=== PATIENT | male | born 1945 | race Caucasian/White ===

== ENCOUNTER 2021-04-20 11:21 | Inpatient (IN) ==
[2021-04-20] MEDS ORDERED: Naloxone 0.4 MG/ML INJ IVP PRN (13:32)
[2021-04-20] MEDS ORDERED: Ondansetron 4 MG/2 ML VIAL IVP PRN (13:32)
[2021-04-20 15:36] LABS: Basophils # 0.1 K/mcL (0.0-0.2); Basophils % 0.6 %; Eosinophils # 0.1 K/mcL (0.0-0.6); Hematocrit 39.7 % (37.5-50.1); Immature Granulocytes % 0.4 % (0-4); Lymphocytes # 1.3 K/mcL (0.6-4.6); Lymphocytes % 14.3 %; Mean Corpuscular HGB Conc 32.7 g/dL (31.6-35.5); Mean Corpuscular Hemoglobin 31.1 pg (28.0-33.3); Mean Platelet Volume 9.6 fL (9.4-12.4); Monocytes # 0.8 K/mcL (0.0-1.3); Neutrophils # 6.8 K/mcL (1.6-8.9); Platelet Count 205 K/mcL (140-400); Red Blood Count 4.18 M/mcL (4.19-5.50); Red Cell Distribution Width 13.2 % (11.5-14.5); Segmented Neutrophils % 74.7 %; White Blood Count 9.1 K/mcL (4.3-11.1)
[2021-04-20 15:45] LABS: INR 1.3
[2021-04-20] MEDS ORDERED: Bumetanide 1 MG TABLET PO ONE (15:54)
[2021-04-20 16:01] LABS: Alanine Aminotransferase 23 Units/L (7-52); Albumin 4.4 g/dL (3.5-5.7); Albumin/Globulin Ratio 1.4 (1.1-2.2); Alkaline Phosphatase 90 Units/L (34-104); Aspartate Amino Transferase 21 Units/L (13-39); BUN/Creatinine Ratio 17 (6-26); Bilirubin,Total 0.6 mg/dL (0.3-1.0); Blood Urea Nitrogen 20 mg/dL (8-23); Calcium 9.6 mg/dL (8.6-10.3); Carbon Dioxide 30 mEq/L (23-29); Chloride 98 mEq/L (98-107); Globulin 3.2 g/dL (2.4-3.5); Glucose 165 mg/dL (70-105); Osmolality,Calculated 286 (280-300); Potassium 4.7 mEq/L (3.5-5.1); Sodium 135 mEq/L (136-145); Total Protein 7.6 g/dL (6.4-8.9); eGFR For African Americans > 60 (> 60); eGFR For Non-African Americans > 60 (> 60)
[2021-04-20] MEDS: Ipratropium/Albuterol Neb 3 ML IH SCH ×2 (16:32→20:07)
[2021-04-20] MEDS ORDERED: Dextrose Gel 15 GM/37.5 ML TUBE PO PRN ×2 (17:17)
[2021-04-20] MEDS ORDERED: D5% in Water 1,000 ML IVC PRN (17:17)
[2021-04-20] MEDS ORDERED: *HR* Dextrose 50 % in Water (Syg) 50 ML SYRINGE IVP PRN (17:17)
[2021-04-20] MEDS: Insulin LISPRO 300 UNITS/3 ML VIAL SUBQ SCH ×2 (17:40→20:38)
[2021-04-20] MEDS: Budesonide/Formoterol 80/4.5 1 PUFF INH IH SCH (20:07)
[2021-04-21] MEDS: Melatonin 3 MG TABLET PO PRN ×2 (02:36→21:32)
[2021-04-21] MEDS: *HR* HYDROcodone/Acet 5/325 mg TABLET PO PRN ×3 (02:36→21:32)
[2021-04-21] MEDS: Ipratropium/Albuterol Neb 3 ML IH SCH ×4 (03:50→19:51)
[2021-04-21 06:36] LABS: Basophils # 0.1 K/mcL (0.0-0.2); Basophils % 0.8 %; Eosinophils # 0.1 K/mcL (0.0-0.6); Eosinophils % 1.1 %; Hemoglobin 12.9 g/dL (12.9-16.9); Immature Granulocytes % 0.5 % (0-4); Lymphocytes % 20.4 %; Mean Corpuscular HGB Conc 32.3 g/dL (31.6-35.5); Mean Corpuscular Hemoglobin 30.9 pg (28.0-33.3); Mean Corpuscular Volume 95.7 fL (83.0-100.0); Mean Platelet Volume 10.2 fL (9.4-12.4); Monocytes % 10.6 %; Neutrophils # 6.5 K/mcL (1.6-8.9); Platelet Count 215 K/mcL (140-400); Red Blood Count 4.18 M/mcL (4.19-5.50); Red Cell Distribution Width 13.3 % (11.5-14.5); Segmented Neutrophils % 66.6 %; White Blood Count 9.8 K/mcL (4.3-11.1)
[2021-04-21 06:59] LABS: Alanine Aminotransferase 21 Units/L (7-52); Albumin 4.3 g/dL (3.5-5.7); Albumin/Globulin Ratio 1.4 (1.1-2.2); Alkaline Phosphatase 87 Units/L (34-104); Aspartate Amino Transferase 18 Units/L (13-39); BUN/Creatinine Ratio 17 (6-26); Bilirubin,Total 0.5 mg/dL (0.3-1.0); Blood Urea Nitrogen 19 mg/dL (8-23); Calcium 9.5 mg/dL (8.6-10.3); Carbon Dioxide 31 mEq/L (23-29); Chloride 97 mEq/L (98-107); Globulin 3.1 g/dL (2.4-3.5); Glucose 201 mg/dL (70-105); Osmolality,Calculated 292 (280-300); Potassium 3.8 mEq/L (3.5-5.1); Sodium 137 mEq/L (136-145); Total Protein 7.4 g/dL (6.4-8.9); eGFR For African Americans > 60 (> 60); eGFR For Non-African Americans > 60 (> 60)
[2021-04-21] MEDS: Insulin LISPRO 300 UNITS/3 ML VIAL SUBQ SCH ×4 (07:56→21:32)
[2021-04-21] MEDS ORDERED: GADOBUTROL 30 MMOL/30 ML VIAL IVP ONE (08:07)
[2021-04-21] MEDS ORDERED: FLUTICASONE PROPION IH SCH (09:00)
[2021-04-21] MEDS ORDERED: SALMETEROL IH SCH (09:00)
[2021-04-21] MEDS ORDERED: [UNRECOGNIZED DRUG - OTHER] IH SCH (09:00)
[2021-04-21] MEDS: Budesonide/Formoterol 80/4.5 1 PUFF INH IH SCH ×2 (10:00→19:51)
[2021-04-22 03:14] LABS: Basophils # 0.1 K/mcL (0.0-0.2); Basophils % 0.7 %; Eosinophils # 0.2 K/mcL (0.0-0.6); Eosinophils % 1.9 %; Hematocrit 37.1 % (37.5-50.1); Hemoglobin 12.3 g/dL (12.9-16.9); Immature Granulocytes % 0.4 % (0-4); Lymphocytes # 1.3 K/mcL (0.6-4.6); Lymphocytes % 15.4 %; Mean Corpuscular HGB Conc 33.2 g/dL (31.6-35.5); Mean Corpuscular Hemoglobin 32.2 pg (28.0-33.3); Mean Corpuscular Volume 97.1 fL (83.0-100.0); Mean Platelet Volume 10.2 fL (9.4-12.4); Monocytes % 12.1 %; Neutrophils # 5.7 K/mcL (1.6-8.9); Platelet Count 170 K/mcL (140-400); Red Blood Count 3.82 M/mcL (4.19-5.50); Red Cell Distribution Width 13.2 % (11.5-14.5); Segmented Neutrophils % 69.5 %; White Blood Count 8.3 K/mcL (4.3-11.1)
[2021-04-22 03:26] LABS: Estimated Average Glucose 169 mg/dl; Hemoglobin A1C 7.5 %
[2021-04-22 03:33] LABS: Alanine Aminotransferase 19 Units/L (7-52); Albumin 3.9 g/dL (3.5-5.7); Albumin/Globulin Ratio 1.4 (1.1-2.2); Alkaline Phosphatase 81 Units/L (34-104); Aspartate Amino Transferase 16 Units/L (13-39); BUN/Creatinine Ratio 16 (6-26); Bilirubin,Total 0.6 mg/dL (0.3-1.0); Blood Urea Nitrogen 17 mg/dL (8-23); Calcium 9.1 mg/dL (8.6-10.3); Carbon Dioxide 32 mEq/L (23-29); Chloride 97 mEq/L (98-107); Globulin 2.8 g/dL (2.4-3.5); Glucose 212 mg/dL (70-105); Osmolality,Calculated 288 (280-300); Potassium 4.4 mEq/L (3.5-5.1); Sodium 135 mEq/L (136-145); Total Protein 6.7 g/dL (6.4-8.9); eGFR For African Americans > 60 (> 60); eGFR For Non-African Americans > 60 (> 60)
[2021-04-22] MEDS: Ipratropium/Albuterol Neb 3 ML IH SCH ×2 (03:48→08:05)
[2021-04-22] MEDS: *HR* HYDROcodone/Acet 5/325 mg TABLET PO PRN (03:57)
[2021-04-22] MEDS: Budesonide/Formoterol 80/4.5 1 PUFF INH IH SCH ×2 (08:05→20:22)
[2021-04-22] MEDS: Insulin LISPRO 300 UNITS/3 ML VIAL SUBQ SCH ×3 (08:54→21:04)
[2021-04-22] MEDS ORDERED: *HR* FentaNYL (PF) 100 MCG/2 ML VIAL ONE (11:22)
[2021-04-22] MEDS ORDERED: Lidocaine -MPF 2% 5 ML VIAL ONE (11:23)
[2021-04-22] MEDS ORDERED: *HR* Propofol 200 MG/20 ML VIAL IVP ONE (11:23)
[2021-04-22] MEDS ORDERED: *HR* Succinylcholine 200 MG/10 ML VIAL IVP ONE (11:24)
[2021-04-22] MEDS ORDERED: Lidocaine HCL 4 ML Topical Solution (Laryng-O-Jet Kit Sterile Pak) TP ONE (11:25)
[2021-04-22] MEDS ORDERED: Ondansetron 4 MG/2 ML VIAL ONE (11:45)
[2021-04-22] MEDS ORDERED: Insulin LISPRO 300 UNITS/3 ML VIAL SUBQ SCH (12:00)
[2021-04-22] MEDS ORDERED: Ipratropium/Albuterol Neb 3 ML IH PRN (14:08)
[2021-04-23] MEDS: *HR* HYDROcodone/Acet 5/325 mg TABLET PO PRN ×3 (00:27→17:10)
[2021-04-23] MEDS: Melatonin 3 MG TABLET PO PRN (00:27)
[2021-04-23 01:09] LABS: Basophils % 0.3 %; Eosinophils % 0.1 %; Hematocrit 39.2 % (37.5-50.1); Immature Granulocytes % 0.5 % (0-4); Lymphocytes # 0.7 K/mcL (0.6-4.6); Lymphocytes % 7.4 %; Mean Corpuscular HGB Conc 33.2 g/dL (31.6-35.5); Mean Corpuscular Hemoglobin 31.2 pg (28.0-33.3); Mean Platelet Volume 9.9 fL (9.4-12.4); Monocytes # 0.6 K/mcL (0.0-1.3); Monocytes % 6.3 %; Neutrophils # 8.5 K/mcL (1.6-8.9); Platelet Count 209 K/mcL (140-400); Red Blood Count 4.17 M/mcL (4.19-5.50); Red Cell Distribution Width 13.4 % (11.5-14.5); Segmented Neutrophils % 85.4 %
[2021-04-23 01:27] LABS: Alanine Aminotransferase 17 Units/L (7-52); Albumin 4.1 g/dL (3.5-5.7); Albumin/Globulin Ratio 1.3 (1.1-2.2); Alkaline Phosphatase 88 Units/L (34-104); Aspartate Amino Transferase 16 Units/L (13-39); BUN/Creatinine Ratio 14 (6-26); Bilirubin,Total 0.6 mg/dL (0.3-1.0); Blood Urea Nitrogen 16 mg/dL (8-23); Calcium 9.3 mg/dL (8.6-10.3); Carbon Dioxide 24 mEq/L (23-29); Chloride 99 mEq/L (98-107); Globulin 3.2 g/dL (2.4-3.5); Glucose 222 mg/dL (70-105); Osmolality,Calculated 284 (280-300); Potassium 4.6 mEq/L (3.5-5.1); Sodium 133 mEq/L (136-145); Total Protein 7.3 g/dL (6.4-8.9); eGFR For African Americans > 60 (> 60); eGFR For Non-African Americans > 60 (> 60)
[2021-04-23] MEDS: Budesonide/Formoterol 80/4.5 1 PUFF INH IH SCH (08:10)
[2021-04-23] MEDS: Insulin LISPRO 300 UNITS/3 ML VIAL SUBQ SCH ×2 (09:02→12:02)
[2021-04-23 10:57] VITALS: BP 132/65; PULSE 69; TEMP 97.8; O2SAT 97
== END 2021-04-23 17:40 | disposition home or self-care (01) | DRG 439 ==
LOC: 3ANU → SUATTDRO 12:52 → 3ANU 13:01 → SUATTDRO 13:44
PROVIDERS: ADMIT Hospitalist; ATTEND Internal Medicine
PROC: ENDOEUS (2021-04-22 13:50)

== ENCOUNTER 2021-06-16 16:59 | Observation (INO) ==
[2021-06-16] MEDS ORDERED: 0.9 % Sodium Chloride 1,000 ML IVC ONE (17:22)
[2021-06-16 18:07] LABS: Basophils % 0.4 %; Red Cell Distribution Width 12.9 % (11.5-14.5)
[2021-06-16 18:09] LABS: Hematocrit 41.4 % (37.5-50.1); Hemoglobin 13.5 g/dL (12.9-16.9); Immature Granulocytes % 0.2 % (0-4); Immature Platelets 2.6 % (1.1-6.1); Lymphocytes # 0.2 K/mcL (0.6-4.6); Lymphocytes % 5.4 %; Mean Corpuscular HGB Conc 32.6 g/dL (31.6-35.5); Mean Corpuscular Hemoglobin 30.6 pg (28.0-33.3); Mean Corpuscular Volume 93.9 fL (83.0-100.0); Mean Platelet Volume 9.5 fL (9.4-12.4); Monocytes # 0.3 K/mcL (0.0-1.3); Monocytes % 7.6 %; Neutrophils # 3.9 K/mcL (1.6-8.9); Nucleated Red Blood Cells 0.4 /100 WBC (0); Red Blood Count 4.41 M/mcL (4.19-5.50); Segmented Neutrophils % 86.4 %; White Blood Count 4.5 K/mcL (4.3-11.1)
[2021-06-16 18:14] LABS: INR 1.2; Prothrombin Time 13.3 Seconds (9.4-12.1)
[2021-06-16 18:17] LABS: Activated Partial Thrombo Time 32.7 Seconds (26.0-36.0)
[2021-06-16 18:28] LABS: Alanine Aminotransferase 52 Units/L (7-52); Albumin 4.2 g/dL (3.5-5.7); Albumin/Globulin Ratio 1.3 (1.1-2.2); Alkaline Phosphatase 103 Units/L (34-104); Aspartate Amino Transferase 45 Units/L (13-39); BUN/Creatinine Ratio 24 (6-26); Bilirubin,Direct 0.1 mg/dL (0.0-0.2); Bilirubin,Indirect 0.8 mg/dL (0.0-1.0); Bilirubin,Total 0.9 mg/dL (0.3-1.0); Blood Urea Nitrogen 23 mg/dL (8-23); Calcium 9.7 mg/dL (8.6-10.3); Carbon Dioxide 28 mEq/L (23-29); Chloride 95 mEq/L (98-107); Ethanol < 10 mg/dL (Less than 10); Globulin 3.2 g/dL (2.4-3.5); Glucose 207 mg/dL (70-105); Osmolality,Calculated 282 (280-300); Potassium 4.4 mEq/L (3.5-5.1); Sodium 131 mEq/L (136-145); Total Protein 7.4 g/dL (6.4-8.9); Troponin I < 0.03 ng/mL (< 0.04); eGFR For African Americans > 60 (> 60); eGFR For Non-African Americans > 60 (> 60)
[2021-06-16] MEDS ORDERED: cefTRIAXone 1,000 MG in 0.9 % Sodium Chloride 10 ML IVP ONE (18:30)
[2021-06-16] MEDS ORDERED: Azithromycin 500 MG in 0.9 % Sodium Chloride 250 ML IVPB ONE (18:30)
[2021-06-16 18:38] LABS: Bilirubin,Urine Negative (Negative); Blood,Urine Negative (Negative); Clarity,Urine Clear (Clear); Color,Urine Light-Yellow (Yellow); Glucose,Urine (UA) >=1000 mg/dL (Normal); Ketones,Urine Negative (Negative); Leukocyte Esterase,Urine Moderate (Negative); Nitrite,Urine Negative (Negative); Protein,Urine 100 mg/dL (Neg-Trace); Specific Gravity,Urine 1.027 (1.010-1.025); Squamous Epithelial Cell,Urine Few per hpf (None-Few); Urobilinogen,Urine Normal (Normal); WBC,Urine 50-100 per hpf (0-3)
[2021-06-16 18:44] LABS: Platelet Count 94 K/mcL (140-400)
[2021-06-16 18:47] LABS: Amphetamine Screen,Urine Negative ng/mL (Cutoff=1000); Barbiturate Screen,Urine Negative ng/mL (Cutoff=200); Benzodiazepines Screen,Urine Negative ng/mL (Cutoff=200); Cannabinoid Screen,Urine Negative ng/mL (Cutoff = 50); Cocaine Screen,Urine Negative ng/mL (Cutoff= 300); Opiate Screen,Urine Negative ng/mL (Cutoff=300); Phencyclidine Screen,Urine Negative ng/mL (Cutoff=25)
[2021-06-16 18:50] LABS: Platelet Estimate Decreased (Normal); Stomatocytes 1+ (Not Present)
[2021-06-16 18:51] LABS: Basophilic Stippling 1+ (Not Present)
[2021-06-16] MEDS ORDERED: *HR* Dextrose 50 % in Water (Syg) 50 ML SYRINGE IVP PRN (19:52)
[2021-06-16] MEDS ORDERED: D5% in Water 1,000 ML IVC PRN (19:52)
[2021-06-16] MEDS ORDERED: Naloxone 0.4 MG/ML INJ IVP PRN (19:52)
[2021-06-16] MEDS ORDERED: Dextrose 4 GM Chewable Tablets PO PRN ×2 (19:52)
[2021-06-16] MEDS ORDERED: Insulin DETEMIR 100 UNIT/ML X5UNITS SUBQ SCH (21:00)
[2021-06-16 21:19] LABS: Influenza A PCR Negative (Negative); Influenza B PCR Negative (Negative); Resp. Syncytial Virus PCR Negative (Negative)
[2021-06-16 21:23] LABS: SARS-CoV-2 by PCR (In House) Negative (Negative)
[2021-06-16] MEDS ORDERED: Perflutren Lipid Microsphere 1.3 ML in 0.9 % Sodium Chloride 8.7 ML IVP PRN (22:01)
[2021-06-16] MEDS ORDERED: Isovue-370 500 ML BOTTLE IVP ONE (22:01)
[2021-06-16 22:05] LABS: Estimated Average Glucose 177 mg/dl; Hemoglobin A1C 7.8 %
[2021-06-17 05:38] LABS: Hemoglobin 12.4 g/dL (12.9-16.9); Red Cell Distribution Width 12.9 % (11.5-14.5)
[2021-06-17 05:40] LABS: Hematocrit 37.8 % (37.5-50.1); Immature Platelets 2.9 % (1.1-6.1); Mean Corpuscular HGB Conc 32.8 g/dL (31.6-35.5); Mean Corpuscular Volume 94.5 fL (83.0-100.0); Mean Platelet Volume 10.4 fL (9.4-12.4); White Blood Count 6.8 K/mcL (4.3-11.1)
[2021-06-17 05:42] LABS: INR 1.4; Prothrombin Time 15.8 Seconds (9.4-12.1)
[2021-06-17] MEDS ORDERED: *HR* OxyCODONE Immed Rel 5 MG TABLET PO PRN (05:55)
[2021-06-17 06:07] LABS: Alanine Aminotransferase 50 Units/L (7-52); Albumin 3.7 g/dL (3.5-5.7); Albumin/Globulin Ratio 1.4 (1.1-2.2); Alkaline Phosphatase 92 Units/L (34-104); Aspartate Amino Transferase 41 Units/L (13-39); BUN/Creatinine Ratio 21 (6-26); Bilirubin,Total 0.9 mg/dL (0.3-1.0); Blood Urea Nitrogen 19 mg/dL (8-23); Calcium 9.2 mg/dL (8.6-10.3); Carbon Dioxide 29 mEq/L (23-29); Chloride 99 mEq/L (98-107); Chol/HDL Ratio 2.3 (0-4.9); Cholesterol 88 mg/dL (< 200); Globulin 2.7 g/dL (2.4-3.5); Glucose 107 mg/dL (70-105); HDL Cholesterol 39 mg/dL (40-59); LDL Cholesterol,Calculated 38 mg/dL (< 100); Osmolality,Calculated 283 (280-300); Sodium 135 mEq/L (136-145); Total Protein 6.4 g/dL (6.4-8.9); Triglycerides 55 mg/dL (< 150); eGFR For African Americans > 60 (> 60); eGFR For Non-African Americans > 60 (> 60)
[2021-06-17] MEDS: Insulin LISPRO 300 UNITS/3 ML VIAL SUBQ SCH ×2 (08:00→12:06)
[2021-06-17] MEDS ORDERED: ALPRAZolam 0.5 MG TABLET PO PRN (09:00)
[2021-06-17] MEDS ORDERED: Azithromycin 250 MG TABLET PO SCH (09:00)
[2021-06-17] MEDS ORDERED: cefTRIAXone 2,000 MG in 0.9 % Sodium Chloride 20 ML IVP SCH (09:00)
[2021-06-17] MEDS ORDERED: Aspirin Enteric Coated 81 MG Tablet PO SCH (09:00)
[2021-06-17 10:44] VITALS: BP 115/54; PULSE 82; TEMP 97.9; O2SAT 97
[2021-06-17] MEDS ORDERED: Ipratropium/Albuterol Neb 3 ML IH PRN (13:35)
[2021-06-17] MEDS ORDERED: Apixaban 5 MG TABLET PO SCH (21:00)
[2021-06-17] MEDS ORDERED: Budesonide/Formoterol 160/4.5 1 PUFF INH IH SCH (22:00)
[2021-06-18] MEDS ORDERED: Bumetanide 1 MG TABLET PO SCH (09:00)
== END 2021-06-17 19:05 | disposition home health service (06) ==
LOC: EMEROOARM 16:59 → 3ANU 16:59
PROVIDERS: ADMIT Internal Medicine; ATTEND Internal Medicine

== ENCOUNTER 2021-11-07 11:07 | Observation (INO) ==
[2021-11-07] MEDS ORDERED: Albuterol 2.5 MG/3 ML NEBULIZER IH ONE (12:11)
[2021-11-07] MEDS ORDERED: Ipratropium/Albuterol Neb 3 ML IH ONE (12:11)
[2021-11-07] MEDS ORDERED: Permethrin Cream Rinse 60 ML LIQUID TP ONE (12:15)
[2021-11-07] MEDS ORDERED: Iopamidol - 370 500 ML MLS IVP ONE (12:33)
[2021-11-07 12:34] LABS: Basophils # 0.1 K/mcL (0.0-0.2); Basophils % 0.3 %; Eosinophils % 0.1 %; Hematocrit 37.1 % (37.5-50.1); Hemoglobin 11.3 g/dL (12.9-16.9); Immature Granulocytes % 0.4 % (0-4); Lymphocytes # 0.6 K/mcL (0.6-4.6); Lymphocytes % 3.9 %; Mean Corpuscular HGB Conc 30.5 g/dL (31.6-35.5); Mean Corpuscular Hemoglobin 26.7 pg (28.0-33.3); Mean Corpuscular Volume 87.5 fL (83.0-100.0); Mean Platelet Volume 9.8 fL (9.4-12.4); Monocytes # 1.8 K/mcL (0.0-1.3); Monocytes % 11.3 %; Neutrophils # 13.3 K/mcL (1.6-8.9); Platelet Count 274 K/mcL (140-400); Red Blood Count 4.24 M/mcL (4.19-5.50); Red Cell Distribution Width 15.7 % (11.5-14.5); White Blood Count 15.8 K/mcL (4.3-11.1)
[2021-11-07 12:57] LABS: Troponin I 0.06 ng/mL (< 0.04)
[2021-11-07 14:10] LABS: Influenza A PCR Negative (Negative); Influenza B PCR Negative (Negative); Resp. Syncytial Virus PCR Negative (Negative)
[2021-11-07 14:14] LABS: SARS-CoV-2 by PCR (In House) Positive (Negative)
[2021-11-07] MEDS ORDERED: Ondansetron 4 MG/2 ML VIAL IVP PRN (16:34)
[2021-11-07] MEDS ORDERED: Melatonin 3 MG TABLET PO PRN (16:34)
[2021-11-07] MEDS ORDERED: Naloxone 0.4 MG/ML INJ IVP PRN ×2 (16:34→16:43)
[2021-11-07] MEDS ORDERED: D5% in Water 1,000 ML IVC PRN (16:40)
[2021-11-07] MEDS ORDERED: *HR* Dextrose 50 % in Water (Syg) 50 ML SYRINGE IVP PRN (16:40)
[2021-11-07] MEDS ORDERED: Dextrose Gel 15 GM/37.5 ML TUBE PO PRN ×2 (16:40)
[2021-11-07] MEDS ORDERED: *HR* Metoprolol 5 MG/5 ML VIAL IVP PRN (17:32)
[2021-11-07] MEDS: Ipratropium 1 PUFF INHALER IH SCH ×3 (18:27→22:21)
[2021-11-07 18:53] LABS: Estimated Average Glucose 137 mg/dl; Hemoglobin A1C 6.4 %
[2021-11-07] MEDS ORDERED: Apixaban 5 MG TABLET PO SCH (21:00)
[2021-11-07 22:16] LABS: Troponin I 0.2 ng/mL (< 0.04)
[2021-11-07] MEDS: Levalbuterol 1 PUFF INHALER IH SCH (22:21)
[2021-11-08] MEDS: Ipratropium 1 PUFF INHALER IH SCH ×5 (04:51→20:51)
[2021-11-08] MEDS: Levalbuterol 1 PUFF INHALER IH SCH ×4 (04:51→20:51)
[2021-11-08 06:00] LABS: Basophils % 0.1 %; Hematocrit 40.1 % (37.5-50.1); Hemoglobin 12.1 g/dL (12.9-16.9); Immature Granulocytes % 0.5 % (0-4); Lymphocytes # 0.4 K/mcL (0.6-4.6); Mean Corpuscular HGB Conc 30.2 g/dL (31.6-35.5); Mean Corpuscular Hemoglobin 26.5 pg (28.0-33.3); Mean Corpuscular Volume 87.7 fL (83.0-100.0); Mean Platelet Volume 9.9 fL (9.4-12.4); Monocytes # 0.8 K/mcL (0.0-1.3); Monocytes % 5.7 %; Neutrophils # 12.5 K/mcL (1.6-8.9); Platelet Count 284 K/mcL (140-400); Red Blood Count 4.57 M/mcL (4.19-5.50); Red Cell Distribution Width 15.4 % (11.5-14.5); Segmented Neutrophils % 90.7 %; White Blood Count 13.8 K/mcL (4.3-11.1)
[2021-11-08 06:21] LABS: Calcium 9.5 mg/dL (8.6-10.3); Magnesium 2.6 mg/dL (1.6-2.6); Phosphorous 4.1 mg/dL (2.7-4.5); Potassium 4.3 mEq/L (3.5-5.1)
[2021-11-08] MEDS: Dexamethasone Sodium Phos/PF 10 MG/ML VIAL IVP SCH (09:25)
[2021-11-08] MEDS: cefTRIAXone 1,000 MG in 0.9 % Sodium Chloride 10 ML IVP SCH (09:26)
[2021-11-08] MEDS: Azithromycin 500 MG in 0.9 % Sodium Chloride 250 ML IVPB SCH (09:26)
[2021-11-08] MEDS: Bumetanide 1 MG TABLET PO SCH (09:26)
[2021-11-08] MEDS: Apixaban 5 MG TABLET PO SCH ×2 (09:27→21:25)
[2021-11-08] MEDS: Insulin LISPRO 300 UNITS/3 ML VIAL SUBQ SCH ×3 (09:27→17:06)
[2021-11-09] MEDS: Ipratropium 1 PUFF INHALER IH SCH ×4 (04:13→20:39)
[2021-11-09] MEDS: Levalbuterol 1 PUFF INHALER IH SCH ×4 (04:13→20:38)
[2021-11-09 06:32] LABS: Bacteria,Urine Few per hpf (None-Few); Bilirubin,Urine Negative (Negative); Blood,Urine Trace (Negative); Budding Yeast,Urine Few per hpf (None Seen); Clarity,Urine Clear (Clear); Color,Urine Light-Yellow (Yellow); Glucose,Urine (UA) >=1000 mg/dL (Normal); Ketones,Urine Negative (Negative); Leukocyte Esterase,Urine Moderate (Negative); Nitrite,Urine Negative (Negative); Protein,Urine >=300 mg/dL (Neg-Trace); Specific Gravity,Urine 1.023 (1.010-1.025); Squamous Epithelial Cell,Urine Few per hpf (None-Few); Urobilinogen,Urine Normal (Normal); WBC,Urine 50-100 per hpf (0-3)
[2021-11-09] MEDS: Azithromycin 500 MG in 0.9 % Sodium Chloride 250 ML IVPB SCH (08:05)
[2021-11-09] MEDS: cefTRIAXone 1,000 MG in 0.9 % Sodium Chloride 10 ML IVP SCH (08:07)
[2021-11-09] MEDS: Apixaban 5 MG TABLET PO SCH ×2 (08:12→20:31)
[2021-11-09] MEDS: Dexamethasone Sodium Phos/PF 10 MG/ML VIAL IVP SCH (08:13)
[2021-11-09] MEDS: Bumetanide 1 MG TABLET PO SCH (08:13)
[2021-11-09] MEDS: Aspirin Enteric Coated 81 MG Tablet PO SCH (08:13)
[2021-11-09] MEDS: Insulin LISPRO 300 UNITS/3 ML VIAL SUBQ SCH ×3 (08:23→17:54)
[2021-11-10 02:39] LABS: Basophils % 0.2 %; Eosinophils % 0.1 %; Hematocrit 41.9 % (37.5-50.1); Hemoglobin 12.8 g/dL (12.9-16.9); Immature Granulocytes % 0.6 % (0-4); Lymphocytes # 0.8 K/mcL (0.6-4.6); Lymphocytes % 5.6 %; Mean Corpuscular HGB Conc 30.5 g/dL (31.6-35.5); Mean Corpuscular Hemoglobin 26.7 pg (28.0-33.3); Mean Corpuscular Volume 87.5 fL (83.0-100.0); Monocytes # 0.8 K/mcL (0.0-1.3); Monocytes % 5.7 %; Neutrophils # 12.7 K/mcL (1.6-8.9); Platelet Count 333 K/mcL (140-400); Red Blood Count 4.79 M/mcL (4.19-5.50); Red Cell Distribution Width 15.2 % (11.5-14.5); Segmented Neutrophils % 87.8 %; White Blood Count 14.5 K/mcL (4.3-11.1)
[2021-11-10 02:57] LABS: Troponin I 0.08 ng/mL (< 0.04)
[2021-11-10 03:12] LABS: Calcium 9.8 mg/dL (8.6-10.3); Magnesium 1.9 mg/dL (1.6-2.6)
[2021-11-10] MEDS: Levalbuterol 1 PUFF INHALER IH SCH ×3 (04:17→16:08)
[2021-11-10] MEDS: Ipratropium 1 PUFF INHALER IH SCH ×3 (04:18→16:08)
[2021-11-10] MEDS: cefTRIAXone 1,000 MG in 0.9 % Sodium Chloride 10 ML IVP SCH (09:48)
[2021-11-10] MEDS: Apixaban 5 MG TABLET PO SCH (09:50)
[2021-11-10] MEDS: Aspirin Enteric Coated 81 MG Tablet PO SCH (09:50)
[2021-11-10] MEDS: Bumetanide 1 MG TABLET PO SCH (09:51)
[2021-11-10] MEDS: Azithromycin 500 MG in 0.9 % Sodium Chloride 250 ML IVPB SCH (09:51)
[2021-11-10] MEDS: carvediloL 6.25 MG TABLET PO SCH ×2 (09:51→17:31)
[2021-11-10] MEDS: Insulin LISPRO 300 UNITS/3 ML VIAL SUBQ SCH ×3 (09:53→17:06)
[2021-11-10 15:38] VITALS: BP 147/90; PULSE 109; TEMP 97.8; O2SAT 94
== END 2021-11-10 21:46 | disposition home health service (06) ==
LOC: EMEROOARM 11:07 → MERGE 11:07 → 3NENU 11:07 → SUATTDRO 18:08 → 3NENU 20:44
PROVIDERS: ADMIT Student in an Organized Health Care Education/Training Program; ATTEND Pharmacist

== ENCOUNTER 2021-11-12 11:56 | Inpatient (IN) ==
[2021-11-12 13:15] LABS: Basophils % 0.2 %; Eosinophils # 0.1 K/mcL (0.0-0.6); Eosinophils % 0.7 %; Hematocrit 43.6 % (37.5-50.1); Hemoglobin 13.3 g/dL (12.9-16.9); Lymphocytes # 1.1 K/mcL (0.6-4.6); Lymphocytes % 6.4 %; Mean Corpuscular HGB Conc 30.5 g/dL (31.6-35.5); Mean Corpuscular Hemoglobin 26.5 pg (28.0-33.3); Mean Corpuscular Volume 86.9 fL (83.0-100.0); Mean Platelet Volume 9.8 fL (9.4-12.4); Monocytes % 5.8 %; Neutrophils # 14.4 K/mcL (1.6-8.9); Platelet Count 340 K/mcL (140-400); Red Blood Count 5.02 M/mcL (4.19-5.50); Red Cell Distribution Width 15.5 % (11.5-14.5); Segmented Neutrophils % 85.9 %; White Blood Count 16.8 K/mcL (4.3-11.1)
[2021-11-12 13:42] LABS: Albumin 3.2 g/dL (3.5-5.7); Albumin/Globulin Ratio 0.6 (1.1-2.2); Bilirubin,Direct 0.1 mg/dL (0.0-0.2); Bilirubin,Indirect 0.3 mg/dL (0.0-1.0); Bilirubin,Total 0.4 mg/dL (0.3-1.0); Calcium 9.6 mg/dL (8.6-10.3); Globulin 5.1 g/dL (2.4-3.5); Potassium 3.8 mEq/L (3.5-5.1); Total Protein 8.3 g/dL (6.4-8.9); Troponin I 0.06 ng/mL (< 0.04)
[2021-11-12 14:04] LABS: Bilirubin,Urine Negative (Negative); Blood,Urine Negative (Negative); Budding Yeast,Urine Few per hpf (None Seen); Clarity,Urine Turbid (Clear); Color,Urine Yellow (Yellow); Glucose,Urine (UA) >=1000 mg/dL (Normal); Hyaline Casts,Urine Few per lpf (None Seen); Ketones,Urine Negative (Negative); Leukocyte Esterase,Urine Large (Negative); Nitrite,Urine Negative (Negative); Protein,Urine 50 mg/dL (Neg-Trace); Specific Gravity,Urine 1.016 (1.010-1.025); Squamous Epithelial Cell,Urine Few per hpf (None-Few); Urobilinogen,Urine Normal (Normal); WBC,Urine TNTC per hpf (0-3)
[2021-11-12] MEDS ORDERED: cefTRIAXone 1,000 MG in Water for inj. (sterile) 10 ML IVP ONE (14:23)
[2021-11-12] MEDS ORDERED: 0.9 % Sodium Chloride 500 ML IVC ONE (14:23)
[2021-11-12 14:52] LABS: INR 1.6; Prothrombin Time 17.3 Seconds (9.4-12.1)
[2021-11-12 14:54] LABS: Activated Partial Thrombo Time 37.7 Seconds (26.0-36.0)
[2021-11-12] MEDS ORDERED: Azithromycin 250 MG TABLET PO ONE (15:16)
[2021-11-12] MEDS ORDERED: Naloxone 0.4 MG/ML INJ IVP PRN (16:12)
[2021-11-12] MEDS ORDERED: Acetaminophen 325 MG TABLET PO PRN (16:12)
[2021-11-12] MEDS ORDERED: Ondansetron 4 MG/2 ML VIAL IVP PRN (16:12)
[2021-11-12] MEDS ORDERED: Dextrose Gel 15 GM/37.5 ML TUBE PO PRN ×2 (16:19)
[2021-11-12] MEDS ORDERED: D5% in Water 1,000 ML IVC PRN (16:19)
[2021-11-12] MEDS ORDERED: *HR* Dextrose 50 % in Water (Syg) 50 ML SYRINGE IVP PRN (16:19)
[2021-11-12] MEDS: carvediloL 6.25 MG TABLET PO SCH (17:53)
[2021-11-12] MEDS: Insulin LISPRO 300 UNITS/3 ML VIAL SUBQ SCH (17:54)
[2021-11-12] MEDS: Apixaban 5 MG TABLET PO SCH (20:32)
[2021-11-13 07:03] LABS: Basophils % 0.2 %; Eosinophils % 0.1 %; Hematocrit 43.6 % (37.5-50.1); Hemoglobin 13.2 g/dL (12.9-16.9); Immature Granulocytes % 1.2 % (0-4); Lymphocytes # 0.6 K/mcL (0.6-4.6); Lymphocytes % 4.9 %; Mean Corpuscular HGB Conc 30.3 g/dL (31.6-35.5); Mean Corpuscular Hemoglobin 26.3 pg (28.0-33.3); Mean Platelet Volume 10.3 fL (9.4-12.4); Monocytes # 0.3 K/mcL (0.0-1.3); Monocytes % 2.7 %; Platelet Count 278 K/mcL (140-400); Red Blood Count 5.01 M/mcL (4.19-5.50); Red Cell Distribution Width 15.3 % (11.5-14.5); Segmented Neutrophils % 90.9 %; White Blood Count 12.1 K/mcL (4.3-11.1)
[2021-11-13 08:11] LABS: Calcium 9.5 mg/dL (8.6-10.3); Potassium 4.1 mEq/L (3.5-5.1); Troponin I 0.04 ng/mL (< 0.04)
[2021-11-13] MEDS ORDERED: Ipratropium/Albuterol Neb 3 ML IH PRN (08:22)
[2021-11-13] MEDS: carvediloL 6.25 MG TABLET PO SCH ×2 (08:40→16:52)
[2021-11-13] MEDS: Apixaban 5 MG TABLET PO SCH ×2 (08:40→21:28)
[2021-11-13] MEDS: Insulin LISPRO 300 UNITS/3 ML VIAL SUBQ SCH ×3 (08:42→16:52)
[2021-11-13] MEDS ORDERED: LACTOSE REDUCED FOOD PO SCH (09:00)
[2021-11-13] MEDS ORDERED: [UNRECOGNIZED DRUG - OTHER] PO SCH (09:00)
[2021-11-13] MEDS: Lactulose Oral Soln 20 GM/30 ML UDC PO SCH ×3 (09:51→21:27)
[2021-11-13] MEDS: Aspirin Enteric Coated 81 MG Tablet PO SCH (09:52)
[2021-11-13] MEDS: Bumetanide 1 MG TABLET PO SCH ×2 (09:52→16:52)
[2021-11-14] MEDS: Aspirin Enteric Coated 81 MG Tablet PO SCH (08:13)
[2021-11-14] MEDS: Apixaban 5 MG TABLET PO SCH ×2 (08:13→21:23)
[2021-11-14] MEDS: Insulin LISPRO 300 UNITS/3 ML VIAL SUBQ SCH ×3 (08:19→18:31)
[2021-11-14] MEDS: Lactulose Oral Soln 20 GM/30 ML UDC PO SCH ×3 (08:31→21:23)
[2021-11-14] MEDS: Bumetanide 1 MG TABLET PO SCH ×2 (08:33→18:31)
[2021-11-14] MEDS: carvediloL 6.25 MG TABLET PO SCH ×2 (08:33→18:31)
[2021-11-14] MEDS ORDERED: Ondansetron 4 MG/2 ML VIAL ONE (13:40)
[2021-11-14] MEDS ORDERED: Lidocaine -MPF 2% 5 ML VIAL ONE (13:40)
[2021-11-14] MEDS ORDERED: *HR* FentaNYL (PF) 100 MCG/2 ML VIAL ONE (13:40)
[2021-11-14] MEDS ORDERED: Lidocaine/EPI 1:100k 1% 10 ML Vial IJ ONE (14:09)
[2021-11-14] MEDS ORDERED: D5% in Water 1,000 ML IVC PRN (16:00)
[2021-11-14] MEDS ORDERED: Ipratropium/Albuterol Neb 3 ML IH PRN (16:00)
[2021-11-14] MEDS ORDERED: Ondansetron 4 MG/2 ML VIAL IVP PRN (16:00)
[2021-11-14] MEDS ORDERED: *HR* Dextrose 50 % in Water (Syg) 50 ML SYRINGE IVP PRN (16:00)
[2021-11-14] MEDS ORDERED: Dextrose Gel 15 GM/37.5 ML TUBE PO PRN ×2 (16:00)
[2021-11-14] MEDS ORDERED: Naloxone 0.4 MG/ML INJ IVP PRN (16:00)
[2021-11-14] MEDS ORDERED: Acetaminophen 325 MG TABLET PO PRN (16:00)
[2021-11-15 05:11] LABS: Basophils % 0.2 %; Eosinophils # 0.1 K/mcL (0.0-0.6); Eosinophils % 0.5 %; Hematocrit 42.4 % (37.5-50.1); Immature Granulocytes % 1.7 % (0-4); Lymphocytes # 1.1 K/mcL (0.6-4.6); Lymphocytes % 7.4 %; Mean Corpuscular HGB Conc 30.7 g/dL (31.6-35.5); Mean Corpuscular Hemoglobin 26.7 pg (28.0-33.3); Mean Corpuscular Volume 87.1 fL (83.0-100.0); Mean Platelet Volume 10.1 fL (9.4-12.4); Monocytes # 0.8 K/mcL (0.0-1.3); Monocytes % 5.5 %; Neutrophils # 12.7 K/mcL (1.6-8.9); Platelet Count 261 K/mcL (140-400); Red Blood Count 4.87 M/mcL (4.19-5.50); Red Cell Distribution Width 15.6 % (11.5-14.5); Segmented Neutrophils % 84.7 %
[2021-11-15 05:30] LABS: Calcium 9.3 mg/dL (8.6-10.3)
[2021-11-15] MEDS: Lactulose Oral Soln 20 GM/30 ML UDC PO SCH ×3 (08:12→21:49)
[2021-11-15] MEDS: Insulin LISPRO 300 UNITS/3 ML VIAL SUBQ SCH ×3 (08:12→17:21)
[2021-11-15] MEDS: Apixaban 5 MG TABLET PO SCH ×2 (08:13→21:46)
[2021-11-15] MEDS: carvediloL 6.25 MG TABLET PO SCH ×2 (08:13→17:21)
[2021-11-15] MEDS: Aspirin Enteric Coated 81 MG Tablet PO SCH (08:13)
[2021-11-15] MEDS: Bumetanide 1 MG TABLET PO SCH ×2 (08:13→17:21)
[2021-11-16] MEDS: Aspirin Enteric Coated 81 MG Tablet PO SCH (08:25)
[2021-11-16] MEDS: Apixaban 5 MG TABLET PO SCH ×2 (08:25→20:05)
[2021-11-16] MEDS: Bumetanide 1 MG TABLET PO SCH ×2 (08:25→16:30)
[2021-11-16] MEDS: carvediloL 6.25 MG TABLET PO SCH ×2 (08:25→16:30)
[2021-11-16] MEDS: Insulin LISPRO 300 UNITS/3 ML VIAL SUBQ SCH ×4 (08:26→21:34)
[2021-11-16] MEDS: Lactulose Oral Soln 20 GM/30 ML UDC PO SCH ×3 (08:26→20:06)
[2021-11-16 09:35] LABS: Hematocrit 44.3 % (37.5-50.1); Hemoglobin 13.5 g/dL (12.9-16.9); Mean Corpuscular HGB Conc 30.5 g/dL (31.6-35.5); Mean Corpuscular Hemoglobin 26.4 pg (28.0-33.3); Mean Corpuscular Volume 86.7 fL (83.0-100.0); Mean Platelet Volume 9.8 fL (9.4-12.4); Platelet Count 259 K/mcL (140-400); Red Blood Count 5.11 M/mcL (4.19-5.50); Red Cell Distribution Width 15.4 % (11.5-14.5)
[2021-11-16 09:52] LABS: Calcium 9.4 mg/dL (8.6-10.3); Potassium 3.7 mEq/L (3.5-5.1)
[2021-11-17 05:54] LABS: Hematocrit 42.1 % (37.5-50.1); Hemoglobin 12.9 g/dL (12.9-16.9); Mean Corpuscular HGB Conc 30.6 g/dL (31.6-35.5); Mean Corpuscular Hemoglobin 26.4 pg (28.0-33.3); Mean Corpuscular Volume 86.3 fL (83.0-100.0); Mean Platelet Volume 10.3 fL (9.4-12.4); Platelet Count 229 K/mcL (140-400); Red Blood Count 4.88 M/mcL (4.19-5.50); Red Cell Distribution Width 15.2 % (11.5-14.5); White Blood Count 12.1 K/mcL (4.3-11.1)
[2021-11-17 06:17] LABS: Calcium 9.3 mg/dL (8.6-10.3); Potassium 3.7 mEq/L (3.5-5.1)
[2021-11-17] MEDS: Apixaban 5 MG TABLET PO SCH ×2 (09:21→22:22)
[2021-11-17] MEDS: Lactulose Oral Soln 20 GM/30 ML UDC PO SCH ×3 (09:21→22:23)
[2021-11-17] MEDS: Bumetanide 1 MG TABLET PO SCH ×2 (09:23→17:11)
[2021-11-17] MEDS: carvediloL 6.25 MG TABLET PO SCH ×2 (09:23→17:11)
[2021-11-17] MEDS: Aspirin Enteric Coated 81 MG Tablet PO SCH (09:23)
[2021-11-17] MEDS: Insulin LISPRO 300 UNITS/3 ML VIAL SUBQ SCH ×3 (09:27→17:13)
[2021-11-17] MEDS ORDERED: Insulin DETEMIR 100 UNIT/ML X5UNITS SUBQ SCH (21:00)
[2021-11-18] MEDS ORDERED: 0.9 % Sodium Chloride 1,000 ML IV ONE (06:04)
[2021-11-18] MEDS: Insulin LISPRO 300 UNITS/3 ML VIAL SUBQ SCH ×5 (09:05→20:33)
[2021-11-18] MEDS: Aspirin Enteric Coated 81 MG Tablet PO SCH (09:06)
[2021-11-18] MEDS: Bumetanide 1 MG TABLET PO SCH ×2 (09:06→17:32)
[2021-11-18] MEDS: carvediloL 6.25 MG TABLET PO SCH ×2 (09:06→17:32)
[2021-11-18] MEDS: Apixaban 5 MG TABLET PO SCH ×2 (09:06→20:31)
[2021-11-18] MEDS: dexAMETHasone 4 MG TABLET PO SCH (09:06)
[2021-11-18] MEDS: Lactulose Oral Soln 20 GM/30 ML UDC PO SCH ×3 (09:07→21:05)
[2021-11-18 10:17] LABS: Basophils % 0.3 %; Eosinophils # 0.2 K/mcL (0.0-0.6); Eosinophils % 1.2 %; Hematocrit 43.9 % (37.5-50.1); Hemoglobin 13.9 g/dL (12.9-16.9); Lymphocytes # 1.3 K/mcL (0.6-4.6); Mean Corpuscular HGB Conc 31.7 g/dL (31.6-35.5); Mean Corpuscular Hemoglobin 27.1 pg (28.0-33.3); Mean Corpuscular Volume 85.6 fL (83.0-100.0); Mean Platelet Volume 9.8 fL (9.4-12.4); Monocytes # 0.8 K/mcL (0.0-1.3); Monocytes % 4.8 %; Neutrophils # 13.2 K/mcL (1.6-8.9); Platelet Count 250 K/mcL (140-400); Red Blood Count 5.13 M/mcL (4.19-5.50); Red Cell Distribution Width 15.6 % (11.5-14.5); Segmented Neutrophils % 84.7 %; White Blood Count 15.6 K/mcL (4.3-11.1)
[2021-11-18 10:35] LABS: Calcium 9.5 mg/dL (8.6-10.3); Magnesium 2.4 mg/dL (1.6-2.6)
[2021-11-18] MEDS ORDERED: Insulin DETEMIR 100 UNIT/ML X5UNITS SUBQ SCH (21:00)
[2021-11-19 04:50] LABS: Basophils % 0.2 %; Eosinophils # 0.1 K/mcL (0.0-0.6); Eosinophils % 0.5 %; Hematocrit 42.5 % (37.5-50.1); Hemoglobin 13.4 g/dL (12.9-16.9); Lymphocytes # 1.2 K/mcL (0.6-4.6); Lymphocytes % 7.6 %; Mean Corpuscular HGB Conc 31.5 g/dL (31.6-35.5); Mean Corpuscular Hemoglobin 26.6 pg (28.0-33.3); Mean Corpuscular Volume 84.5 fL (83.0-100.0); Mean Platelet Volume 10.2 fL (9.4-12.4); Monocytes # 0.9 K/mcL (0.0-1.3); Monocytes % 5.5 %; Neutrophils # 13.1 K/mcL (1.6-8.9); Platelet Count 229 K/mcL (140-400); Red Blood Count 5.03 M/mcL (4.19-5.50); Red Cell Distribution Width 15.7 % (11.5-14.5); Segmented Neutrophils % 85.2 %; White Blood Count 15.4 K/mcL (4.3-11.1)
[2021-11-19 05:08] LABS: Calcium 9.4 mg/dL (8.6-10.3); Magnesium 2.1 mg/dL (1.6-2.6)
[2021-11-19] MEDS: carvediloL 6.25 MG TABLET PO SCH (08:05)
[2021-11-19] MEDS: Lactulose Oral Soln 20 GM/30 ML UDC PO SCH (08:05)
[2021-11-19] MEDS: Bumetanide 1 MG TABLET PO SCH (08:05)
[2021-11-19] MEDS: Aspirin Enteric Coated 81 MG Tablet PO SCH (08:06)
[2021-11-19] MEDS: Apixaban 5 MG TABLET PO SCH (08:06)
[2021-11-19] MEDS: dexAMETHasone 4 MG TABLET PO SCH (08:06)
[2021-11-19] MEDS: Insulin LISPRO 300 UNITS/3 ML VIAL SUBQ SCH ×2 (08:10→12:50)
[2021-11-19 11:56] VITALS: BP 121/67; PULSE 78; TEMP 97.9; O2SAT 98
== END 2021-11-19 14:11 | DRG 987 ==
LOC: EMEROOARM 11:56 → 3ANU 11:56 → SUATTDRO 16:25 → 3ANU 16:33
PROVIDERS: ADMIT Internal Medicine; ATTEND Family Medicine